=== PATIENT | female | born 1955 | race Two or more races ===

== ENCOUNTER 2021-11-23 06:56 | Emergency (ER) | payer MEDICAID, OTHER ==
[~2021-11-23] VITALS: Ht 167.6 cm; Wt 90.7 kg
--- NOTE | 2021-11-23 07:40 | NUR ---
[id number]. 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 IN ROOM AIR AND DENIES SOB. RESPIRATION REGULAR AND UNLABORED. DENIES PAIN. WILL CONTINUE TO MONITOR THE PATIENT.
--- NOTE | 2021-11-23 10:04 | NUR ---
SW reached out to [facility] for pt. Will wait for a call back. [facility] [for pt.'s experiencing homelessness/Covid positive]: Tele: [phone], fax: [phone]
--- NOTE | 2021-11-23 11:38 | NUR ---
[facility] needs pt.'s recent covid test and vital signs. SW notified MD for pt.'s recent Covid test.
--- NOTE | 2021-11-23 13:22 | NUR ---
PT COVID ANTIGEN (+); CONTACT DROPLET SAFETY MEASURES IN PLACE.
--- NOTE | 2021-11-23 14:00 | NUR ---
SW AT BEDSIDE FOR EVAL.
[2021-11-23 14:23] VITALS: BP 138/84
--- NOTE | 2021-11-23 14:23 | NUR ---
Patient eloped from facility. ER MD notified.
== END 2021-11-23 14:24 | disposition left against medical advice (07) ==
LOC: ER 06:58
DX: U07.1 COVID-19 (principal); Z59.02 Unsheltered homelessness; Z53.29 Procedure and treatment not carried out because of patient's decision for other reasons
CPT/HCPCS: 87426; 99283; C9803